=== PATIENT | male | born 1940 | race Caucasian/White ===

== ENCOUNTER 2017-08-01 17:18 | Inpatient (IN) | payer MEDICARE, OTHER ==
[~2017-08-01] VITALS: Ht 172.7 cm; Wt 59.0 kg
[2017-08-01 19:15] LABS: CLARITY,URINE Clear (Clear); COLOR,URINE Yellow (Yellow); GLUCOSE, URINE Negative (Neg); KETONES,URINE Negative (Neg); LEUKOCYTE ESTERASE ,URINE Negative (Neg); NITRITES, URINE Negative (Neg); OCCULT BLOOD,URINE Negative (Neg); PROTEIN,URINE Trace mg/dl (Neg); UROBILINOGEN,URINE 0.2 E.U/dL (0.2-1.0)
[2017-08-01 19:16] LABS: UA COLLECTION TYPE CLN CATCH MIDSTREAM
[2017-08-01 19:22] LABS: BACTERIA,URINE 1+ /HPF (Neg); MUCUS STRANDS NONE SEEN /LPF (Neg); RBC,URINE NONE SEEN /HPF (0-2); SQUAMOUS EPITHELIAL CELL,UR NONE SEEN /LPF (FEW); WBC,URINE NONE SEEN /HPF (0-4)
[2017-08-01 19:34] LABS: BASOPHILS # (AUTO) 0.1 X10'3 (0-0.2); BASOPHILS % (AUTO) 0.6 % (0-1); EOSINOPHILS # (AUTO) 0.2 X10'3 (0-0.9); EOSINOPHILS % (AUTO) 2.5 % (0-6); HEMATOCRIT 47.3 % (42.0-52.0); HEMOGLOBIN 15.7 g/dl (14.0-17.9); LYMPHOCYTES # (AUTO) 2.6 X10'3 (1.1-4.8); LYMPHOCYTES % (AUTO) 31.8 % (21-51); MEAN CORPUSCULAR HEMOGLOBIN 32.9 PG (27.0-31.0); MEAN CORPUSCULAR HGB CONC 33.1 % (33.0-36.5); MEAN CORPUSCULAR VOLUME 99.2 FL (78-98); MEAN PLATELET VOLUME 6.6 FL (7.4-10.4); MONOCYTES # (AUTO) 0.4 X10'3 (0-0.9); MONOCYTES % (AUTO) 5.3 % (2-12); NEUTROPHILS # (AUTO) 4.9 X10'3 (1.8-7.7); NEUTROPHILS % (AUTO) 59.8 % (42-75); PLATELET COUNT 263 X10'3 (140-440); RED BLOOD COUNT 4.77 X10'6 (4.70-6.10); RED CELL DISTRIBUTION WIDTH 15.4 % (11.5-14.5); WHITE BLOOD COUNT 8.2 X10'3 (4.5-11.0)
[2017-08-01 19:51] LABS: ALANINE AMINOTRANSFERASE 28 U/L (12-78); ALBUMIN 4.2 G/DL (3.4-5.0); ALKALINE PHOSPHATASE 129 IU/L (46-116); ANION GAP 9 (8-16); ASPARTATE AMINO TRANSFERASE 26 U/L (10-37); BILIRUBIN,TOTAL 1.4 MG/DL (0.1-1.0); BLOOD UREA NITROGEN 15 MG/DL (7-18); BUN/CREATININE RATIO 15.8 (5.4-32.0); CALCIUM 9.3 MG/DL (8.5-10.1); CHLORIDE 105 MMOL/L (99-107); CREATININE 0.95 MG/DL (0.60-1.10); GLUCOSE 73 MG/DL (70-104); LIPASE 137 U/L (73-393); MAGNESIUM 1.9 MG/DL (1.5-2.4); POTASSIUM 3.9 MMOL/L (3.5-5.1); SODIUM 143 MMOL/L (135-145); TOTAL CARBON DIOXIDE 29.4 MMOL/L (24-32); TOTAL PROTEIN 8.4 G/DL (6.4-8.2); eGFR 77 ML/MIN
[2017-08-01] MEDS ORDERED: diphenhydrAMINE 25mg capsule PO PRN (20:20)
[2017-08-01] MEDS ORDERED: acetaminophen 325mg tablet PO PRN ×2 (20:20)
[2017-08-01] MEDS ORDERED: metoclopramide 5 mg/ml inj IV PRN (20:20)
[2017-08-01] MEDS ORDERED: HYDROmorphone 1 mg/ml syringe IV PRN ×2 (20:20)
[2017-08-01] MEDS ORDERED: mag hydrox/Alum hydrox/simeth 30ml oral suspension PO PRN (20:20)
[2017-08-01] MEDS ORDERED: morphine sulfate 8 MG/ML SYRINGE IV PRN ×2 (20:20)
[2017-08-01] MEDS ORDERED: diphenhydrAMINE 50 mg/ml inj IV PRN (20:20)
[2017-08-01] MEDS ORDERED: magnesium hydroxide 30ml (MOM) UD suspension PO PRN (20:20)
[2017-08-01] MEDS ORDERED: HYDROcodone/acetaminophen 10/325mg tab PO PRN (20:20)
[2017-08-01] MEDS ORDERED: bisacodyl 10mg suppository rectal RC PRN (20:20)
[2017-08-01] MEDS ORDERED: acetaminophen 650mg rectal suppository RC PRN (20:20)
[2017-08-01] MEDS ORDERED: ondansetron/PF 4mg/2ml inj IV PRN (20:20)
[2017-08-01 20:34] LABS: D-DIMER 1.65 MG/L FEU (0-0.50); INR 0.9 INR; PARTIAL THROMBOPLASTIN TIME 25 SECONDS (22-32); PROTHROMBIN TIME 9.6 SECONDS (9.0-12.0)
[2017-08-01 20:51] LABS: PHOSPHORUS 3.8 MG/DL (2.3-4.5)
[2017-08-01] MEDS ORDERED: temazepam 15mg capsule PO PRN (21:00)
[2017-08-01 21:45] VITALS: BP 192/89
[2017-08-01] MEDS: HYDROcodone/acetaminophen 5mg/325mg tablet PO PRN (22:08)
[2017-08-01] MEDS: dextrose 5%-1/2 normal saline 1,000 ML IV SCH (23:24)
[2017-08-02 01:00] VITALS: BP 129/78
[2017-08-02] MEDS: hydrALAZINE 20mg/ml inj. IV SCH ×3 (02:00→16:20)
[2017-08-02] MEDS: HYDROcodone/acetaminophen 5mg/325mg tablet PO PRN ×3 (04:28→20:02)
[2017-08-02 05:49] VITALS: BP 129/78
[2017-08-02 06:00] VITALS: BP 133/78
[2017-08-02] MEDS: dextrose 5%-1/2 normal saline 1,000 ML IV SCH ×2 (06:18→19:58)
[2017-08-02 06:48] LABS: BASOPHILS % (AUTO) 0.7 % (0-1); EOSINOPHILS # (AUTO) 0.1 X10'3 (0-0.9); EOSINOPHILS % (AUTO) 2.1 % (0-6); HEMATOCRIT 39.6 % (42.0-52.0); HEMOGLOBIN 13.4 g/dl (14.0-17.9); LYMPHOCYTES # (AUTO) 2.2 X10'3 (1.1-4.8); LYMPHOCYTES % (AUTO) 33.6 % (21-51); MEAN CORPUSCULAR HEMOGLOBIN 33.6 PG (27.0-31.0); MEAN CORPUSCULAR HGB CONC 33.7 % (33.0-36.5); MEAN CORPUSCULAR VOLUME 99.6 FL (78-98); MEAN PLATELET VOLUME 7.1 FL (7.4-10.4); MONOCYTES # (AUTO) 0.5 X10'3 (0-0.9); MONOCYTES % (AUTO) 8.4 % (2-12); NEUTROPHILS # (AUTO) 3.6 X10'3 (1.8-7.7); NEUTROPHILS % (AUTO) 55.2 % (42-75); PLATELET COUNT 233 X10'3 (140-440); RED BLOOD COUNT 3.98 X10'6 (4.70-6.10); WHITE BLOOD COUNT 6.4 X10'3 (4.5-11.0)
[2017-08-02 07:33] LABS: ALANINE AMINOTRANSFERASE 22 U/L (12-78); ALBUMIN 3.3 G/DL (3.4-5.0); ALKALINE PHOSPHATASE 101 IU/L (46-116); ANION GAP 11 (8-16); ASPARTATE AMINO TRANSFERASE 22 U/L (10-37); BILIRUBIN,TOTAL 1.7 MG/DL (0.1-1.0); BLOOD UREA NITROGEN 21 MG/DL (7-18); BUN/CREATININE RATIO 20.4 (5.4-32.0); CALCIUM 8.5 MG/DL (8.5-10.1); CHLORIDE 103 MMOL/L (99-107); CREATININE 1.03 MG/DL (0.60-1.10); GLUCOSE 105 MG/DL (70-104); POTASSIUM 3.7 MMOL/L (3.5-5.1); SODIUM 140 MMOL/L (135-145); TOTAL CARBON DIOXIDE 26.3 MMOL/L (24-32); TOTAL PROTEIN 6.6 G/DL (6.4-8.2); eGFR 70 ML/MIN
[2017-08-02] MEDS: docusate sod 100mg capsule PO SCH ×2 (08:06→19:55)
[2017-08-02] MEDS: pantoprazole 40mg Tablet.DR PO SCH (08:06)
[2017-08-02] MEDS: heparin, porcine 5000 units/ml vial SQ SCH ×2 (08:07→19:55)
[2017-08-02] MEDS ORDERED: NO HOME MEDS (08:14)
[2017-08-02 10:00] VITALS: BP 152/81
[2017-08-02] MEDS ORDERED: hydrALAZINE 20mg/ml inj. IV PRN (18:30)
[2017-08-02 19:05] VITALS: BP 130/61
[2017-08-02 22:30] VITALS: BP 128/74
[2017-08-03] MEDS: HYDROcodone/acetaminophen 5mg/325mg tablet PO PRN ×2 (01:01→16:58)
[2017-08-03 05:00] VITALS: BP 149/83
[2017-08-03] MEDS: dextrose 5%-1/2 normal saline 1,000 ML IV SCH ×2 (05:51→12:18)
[2017-08-03 06:02] LABS: BASOPHILS % (AUTO) 0.6 % (0-1); EOSINOPHILS # (AUTO) 0.2 X10'3 (0-0.9); EOSINOPHILS % (AUTO) 2.7 % (0-6); HEMATOCRIT 37.3 % (42.0-52.0); HEMOGLOBIN 12.6 g/dl (14.0-17.9); LYMPHOCYTES # (AUTO) 2.5 X10'3 (1.1-4.8); LYMPHOCYTES % (AUTO) 38.6 % (21-51); MEAN CORPUSCULAR HEMOGLOBIN 33.7 PG (27.0-31.0); MEAN CORPUSCULAR HGB CONC 33.6 % (33.0-36.5); MEAN CORPUSCULAR VOLUME 100.3 FL (78-98); MEAN PLATELET VOLUME 7.1 FL (7.4-10.4); MONOCYTES # (AUTO) 0.6 X10'3 (0-0.9); MONOCYTES % (AUTO) 9.4 % (2-12); NEUTROPHILS # (AUTO) 3.1 X10'3 (1.8-7.7); NEUTROPHILS % (AUTO) 48.7 % (42-75); PLATELET COUNT 222 X10'3 (140-440); RED BLOOD COUNT 3.72 X10'6 (4.70-6.10); RED CELL DISTRIBUTION WIDTH 15.6 % (11.5-14.5); WHITE BLOOD COUNT 6.4 X10'3 (4.5-11.0)
[2017-08-03 06:49] LABS: ALANINE AMINOTRANSFERASE 21 U/L (12-78); ALBUMIN 2.9 G/DL (3.4-5.0); ALBUMIN/GLOBULIN RATIO 0.9 (1.1-1.5); ALKALINE PHOSPHATASE 86 IU/L (46-116); ANION GAP 5 (8-16); ASPARTATE AMINO TRANSFERASE 16 U/L (10-37); BLOOD UREA NITROGEN 17 MG/DL (7-18); BUN/CREATININE RATIO 15.3 (5.4-32.0); CALCIUM 8.7 MG/DL (8.5-10.1); CHLORIDE 106 MMOL/L (99-107); CREATININE 1.11 MG/DL (0.60-1.10); GLUCOSE 101 MG/DL (70-104); POTASSIUM 3.8 MMOL/L (3.5-5.1); SODIUM 140 MMOL/L (135-145); TOTAL CARBON DIOXIDE 28.6 MMOL/L (24-32); eGFR 64 ML/MIN
[2017-08-03] MEDS: lisinopril 5mg tablet PO SCH (08:57)
[2017-08-03] MEDS: pantoprazole 40mg Tablet.DR PO SCH (08:57)
[2017-08-03] MEDS: docusate sod 100mg capsule PO SCH ×2 (08:57→20:00)
[2017-08-03] MEDS: heparin, porcine 5000 units/ml vial SQ SCH ×2 (08:57→20:00)
[2017-08-03 10:00] VITALS: BP 163/91
[2017-08-03 18:05] VITALS: BP 154/79
[2017-08-03] MEDS ORDERED: LORazepam 2 mg/ml vial IV PRN (19:05)
[2017-08-03] MEDS: LORazepam 2 mg/ml vial IV PRN (20:37)
[2017-08-03 22:10] VITALS: BP 125/67
[2017-08-04] MEDS ORDERED: thiamine inj. 100 MG in normal saline 100ml IV soln 100 ML IV ONE ×2 (02:05→08:00)
[2017-08-04] MEDS ORDERED: haloperidol lactate 5mg/ml inj IM PRN (02:05)
[2017-08-04] MEDS ORDERED: haloperidol 5mg tablet PO PRN (02:05)
[2017-08-04] MEDS: LORazepam 2 mg/ml vial IV PRN (02:18)
[2017-08-04 05:00] VITALS: BP 126/81
[2017-08-04 07:35] LABS: BASOPHILS % (AUTO) 0.4 % (0-1); EOSINOPHILS # (AUTO) 0.3 X10'3 (0-0.9); EOSINOPHILS % (AUTO) 3.9 % (0-6); HEMATOCRIT 41.4 % (42.0-52.0); HEMOGLOBIN 13.9 g/dl (14.0-17.9); LYMPHOCYTES # (AUTO) 2.6 X10'3 (1.1-4.8); LYMPHOCYTES % (AUTO) 37.2 % (21-51); MEAN CORPUSCULAR HEMOGLOBIN 33.8 PG (27.0-31.0); MEAN CORPUSCULAR HGB CONC 33.5 % (33.0-36.5); MEAN CORPUSCULAR VOLUME 100.7 FL (78-98); MEAN PLATELET VOLUME 7.3 FL (7.4-10.4); MONOCYTES # (AUTO) 0.6 X10'3 (0-0.9); MONOCYTES % (AUTO) 9.3 % (2-12); NEUTROPHILS # (AUTO) 3.4 X10'3 (1.8-7.7); NEUTROPHILS % (AUTO) 49.2 % (42-75); PLATELET COUNT 240 X10'3 (140-440); RED BLOOD COUNT 4.11 X10'6 (4.70-6.10); RED CELL DISTRIBUTION WIDTH 15.3 % (11.5-14.5); WHITE BLOOD COUNT 6.9 X10'3 (4.5-11.0)
[2017-08-04] MEDS: heparin, porcine 5000 units/ml vial SQ SCH ×2 (08:00→20:16)
[2017-08-04] MEDS: docusate sod 100mg capsule PO SCH ×2 (08:00→20:15)
[2017-08-04] MEDS ORDERED: folic acid inj. 2 MG, thiamine inj. 100 MG, MVI, adult No.4 with vit. K 10 ML in dextro... IV SCH ×4 (08:00)
[2017-08-04 08:07] LABS: ALANINE AMINOTRANSFERASE 21 U/L (12-78); ALBUMIN 3.2 G/DL (3.4-5.0); ALBUMIN/GLOBULIN RATIO 0.9 (1.1-1.5); ALKALINE PHOSPHATASE 96 IU/L (46-116); ANION GAP 7 (8-16); ASPARTATE AMINO TRANSFERASE 18 U/L (10-37); BILIRUBIN,TOTAL 1.1 MG/DL (0.1-1.0); BLOOD UREA NITROGEN 8 MG/DL (7-18); BUN/CREATININE RATIO 7.6 (5.4-32.0); CALCIUM 9.1 MG/DL (8.5-10.1); CHLORIDE 105 MMOL/L (99-107); CREATININE 1.05 MG/DL (0.60-1.10); GLUCOSE 84 MG/DL (70-104); POTASSIUM 3.6 MMOL/L (3.5-5.1); SODIUM 142 MMOL/L (135-145); TOTAL CARBON DIOXIDE 30.2 MMOL/L (24-32); TOTAL PROTEIN 6.6 G/DL (6.4-8.2); eGFR 68 ML/MIN
[2017-08-04 10:00] VITALS: BP 144/82
[2017-08-04] MEDS: lisinopril 5mg tablet PO SCH (10:11)
[2017-08-04] MEDS: folic acid 1mg tablet PO SCH (10:12)
[2017-08-04] MEDS: multivitamins, therapeutics tablet PO SCH (10:12)
[2017-08-04] MEDS: thiamine 100mg tablet PO SCH (10:12)
[2017-08-04] MEDS: pantoprazole 40mg Tablet.DR PO SCH (10:12)
[2017-08-04 18:37] VITALS: BP 148/81
[2017-08-04] MEDS: LORazepam 1 MG tablet PO PRN (20:16)
[2017-08-04 21:49] VITALS: BP 131/89
[2017-08-05] MEDS: LORazepam 1 MG tablet PO PRN (01:48)
[2017-08-05] MEDS: LORazepam 2 mg/ml vial IV PRN (04:28)
[2017-08-05 06:00] VITALS: BP 136/71
[2017-08-05 06:39] LABS: BASOPHILS # (AUTO) 0.1 X10'3 (0-0.2); BASOPHILS % (AUTO) 0.9 % (0-1); EOSINOPHILS # (AUTO) 0.2 X10'3 (0-0.9); EOSINOPHILS % (AUTO) 3.2 % (0-6); HEMATOCRIT 38.6 % (42.0-52.0); HEMOGLOBIN 13.1 g/dl (14.0-17.9); LYMPHOCYTES # (AUTO) 2.4 X10'3 (1.1-4.8); LYMPHOCYTES % (AUTO) 31.9 % (21-51); MEAN CORPUSCULAR HEMOGLOBIN 33.9 PG (27.0-31.0); MEAN CORPUSCULAR HGB CONC 33.9 % (33.0-36.5); MEAN CORPUSCULAR VOLUME 99.9 FL (78-98); MEAN PLATELET VOLUME 7.3 FL (7.4-10.4); MONOCYTES # (AUTO) 0.7 X10'3 (0-0.9); MONOCYTES % (AUTO) 9.4 % (2-12); NEUTROPHILS # (AUTO) 4.1 X10'3 (1.8-7.7); NEUTROPHILS % (AUTO) 54.6 % (42-75); PLATELET COUNT 232 X10'3 (140-440); RED BLOOD COUNT 3.86 X10'6 (4.70-6.10); WHITE BLOOD COUNT 7.5 X10'3 (4.5-11.0)
[2017-08-05 06:55] LABS: ALANINE AMINOTRANSFERASE 33 U/L (12-78); ALBUMIN 3.2 G/DL (3.4-5.0); ALBUMIN/GLOBULIN RATIO 0.9 (1.1-1.5); ALKALINE PHOSPHATASE 97 IU/L (46-116); AMYLASE 62 U/L (25-115); ANION GAP 6 (8-16); ASPARTATE AMINO TRANSFERASE 42 U/L (10-37); BILIRUBIN,TOTAL 0.7 MG/DL (0.1-1.0); BLOOD UREA NITROGEN 16 MG/DL (7-18); BUN/CREATININE RATIO 15.7 (5.4-32.0); CALCIUM 9.1 MG/DL (8.5-10.1); CHLORIDE 104 MMOL/L (99-107); CREATININE 1.02 MG/DL (0.60-1.10); GLUCOSE 104 MG/DL (70-104); LIPASE 148 U/L (73-393); MAGNESIUM 1.8 MG/DL (1.5-2.4); PHOSPHORUS 3.9 MG/DL (2.3-4.5); SODIUM 140 MMOL/L (135-145); TOTAL CARBON DIOXIDE 29.7 MMOL/L (24-32); TOTAL PROTEIN 6.7 G/DL (6.4-8.2); eGFR 71 ML/MIN
[2017-08-05] MEDS: folic acid 1mg tablet PO SCH (09:05)
[2017-08-05] MEDS: thiamine 100mg tablet PO SCH (09:05)
[2017-08-05] MEDS: multivitamins, therapeutics tablet PO SCH (09:05)
[2017-08-05] MEDS: lisinopril 5mg tablet PO SCH (09:05)
[2017-08-05] MEDS: docusate sod 100mg capsule PO SCH ×2 (09:06→19:55)
[2017-08-05] MEDS: pantoprazole 40mg Tablet.DR PO SCH (09:06)
[2017-08-05] MEDS: heparin, porcine 5000 units/ml vial SQ SCH ×2 (09:07→19:55)
[2017-08-05 10:00] VITALS: BP 139/74
[2017-08-05 14:15] VITALS: BP 123/73
[2017-08-05 18:00] VITALS: BP 128/65
[2017-08-05 22:00] VITALS: BP 118/44
[2017-08-06] MEDS ORDERED: LORazepam 1 MG tablet PO PRN (02:05)
[2017-08-06] MEDS ORDERED: LORazepam 2 mg/ml vial IV PRN (02:05)
[2017-08-06 06:00] VITALS: BP 95/75
[2017-08-06 06:37] LABS: BASOPHILS % (AUTO) 0.6 % (0-1); EOSINOPHILS # (AUTO) 0.2 X10'3 (0-0.9); EOSINOPHILS % (AUTO) 3.1 % (0-6); HEMATOCRIT 39.5 % (42.0-52.0); HEMOGLOBIN 13.3 g/dl (14.0-17.9); LYMPHOCYTES # (AUTO) 2.8 X10'3 (1.1-4.8); LYMPHOCYTES % (AUTO) 38.2 % (21-51); MEAN CORPUSCULAR HEMOGLOBIN 33.7 PG (27.0-31.0); MEAN CORPUSCULAR HGB CONC 33.6 % (33.0-36.5); MEAN CORPUSCULAR VOLUME 100.1 FL (78-98); MEAN PLATELET VOLUME 7.4 FL (7.4-10.4); MONOCYTES # (AUTO) 0.7 X10'3 (0-0.9); NEUTROPHILS # (AUTO) 3.6 X10'3 (1.8-7.7); NEUTROPHILS % (AUTO) 49.1 % (42-75); PLATELET COUNT 228 X10'3 (140-440); RED BLOOD COUNT 3.95 X10'6 (4.70-6.10); RED CELL DISTRIBUTION WIDTH 15.5 % (11.5-14.5); WHITE BLOOD COUNT 7.4 X10'3 (4.5-11.0)
[2017-08-06 06:47] LABS: PROTHROMBIN TIME 9.9 SECONDS (9.0-12.0)
[2017-08-06 06:59] LABS: ALANINE AMINOTRANSFERASE 72 U/L (12-78); ALBUMIN 3.1 G/DL (3.4-5.0); ALBUMIN/GLOBULIN RATIO 0.9 (1.1-1.5); ALKALINE PHOSPHATASE 93 IU/L (46-116); AMYLASE 63 U/L (25-115); ANION GAP 7 (8-16); ASPARTATE AMINO TRANSFERASE 88 U/L (10-37); BILIRUBIN,TOTAL 0.6 MG/DL (0.1-1.0); BLOOD UREA NITROGEN 18 MG/DL (7-18); BUN/CREATININE RATIO 17.8 (5.4-32.0); CALCIUM 9.2 MG/DL (8.5-10.1); CHLORIDE 105 MMOL/L (99-107); CREATININE 1.01 MG/DL (0.60-1.10); GLUCOSE 111 MG/DL (70-104); LIPASE 143 U/L (73-393); MAGNESIUM 1.8 MG/DL (1.5-2.4); PHOSPHORUS 3.6 MG/DL (2.3-4.5); POTASSIUM 3.8 MMOL/L (3.5-5.1); SODIUM 140 MMOL/L (135-145); TOTAL CARBON DIOXIDE 27.8 MMOL/L (24-32); TOTAL PROTEIN 6.6 G/DL (6.4-8.2); eGFR 72 ML/MIN
[2017-08-06] MEDS: thiamine 100mg tablet PO SCH (08:24)
[2017-08-06] MEDS: lisinopril 5mg tablet PO SCH (08:24)
[2017-08-06] MEDS: multivitamins, therapeutics tablet PO SCH (08:24)
[2017-08-06] MEDS: folic acid 1mg tablet PO SCH (08:24)
[2017-08-06] MEDS: pantoprazole 40mg Tablet.DR PO SCH (08:24)
[2017-08-06] MEDS: docusate sod 100mg capsule PO SCH ×2 (08:24→20:38)
[2017-08-06] MEDS: heparin, porcine 5000 units/ml vial SQ SCH ×2 (08:26→20:38)
[2017-08-06 10:00] VITALS: BP 119/69
[2017-08-06 18:00] VITALS: BP 148/94
[2017-08-06] MEDS: LORazepam 1 MG tablet PO PRN ×2 (22:34→23:42)
[2017-08-06 23:00] VITALS: BP 135/65
[2017-08-07 01:59] VITALS: BP 139/79
[2017-08-07] MEDS: LORazepam 2 mg/ml vial IV PRN (02:56)
[2017-08-07 06:00] VITALS: BP 150/81
[2017-08-07 06:51] LABS: MAGNESIUM 1.9 MG/DL (1.5-2.4); PHOSPHORUS 3.1 MG/DL (2.3-4.5)
[2017-08-07] MEDS: heparin, porcine 5000 units/ml vial SQ SCH ×2 (08:00→08:05)
[2017-08-07] MEDS: docusate sod 100mg capsule PO SCH (08:04)
[2017-08-07] MEDS: thiamine 100mg tablet PO SCH (08:05)
[2017-08-07] MEDS: lisinopril 5mg tablet PO SCH (08:05)
[2017-08-07] MEDS: pantoprazole 40mg Tablet.DR PO SCH (08:05)
[2017-08-07] MEDS: folic acid 1mg tablet PO SCH (08:05)
[2017-08-07] MEDS: multivitamins, therapeutics tablet PO SCH (08:05)
[2017-08-07] MEDS ORDERED: HYDR-569 PO (12:27)
[2017-08-07] MEDS ORDERED: LISI-604 PO (12:27)
[2017-08-08] MEDS ORDERED: LORazepam 1 MG tablet PO PRN (02:05)
[2017-08-08] MEDS ORDERED: LORazepam 2 mg/ml vial IV PRN (02:05)
== END 2017-08-07 15:17 | disposition home or self-care (01) | DRG 543 ==
LOC: ER 17:19 → ED HOLD 20:18 → ORTHO 4S 21:30
PROVIDERS: ADMIT Family Medicine; ATTEND Family Medicine
DX: M48.56XA Collapsed vertebra, not elsewhere classified, lumbar region, initial encounter for fracture (principal); J90 Pleural effusion, not elsewhere classified; K86.2 Cyst of pancreas; K76.0 Fatty (change of) liver, not elsewhere classified; Z68.1 Body mass index [BMI] 19.9 or less, adult; K80.20 Calculus of gallbladder without cholecystitis without obstruction; F10.10 Alcohol abuse, uncomplicated; G89.29 Other chronic pain; I10 Essential (primary) hypertension; X58.XXXA Exposure to other specified factors, initial encounter; I25.10 Atherosclerotic heart disease of native coronary artery without angina pectoris; M21.379 Foot drop, unspecified foot; Z90.49 Acquired absence of other specified parts of digestive tract; Z91.81 History of falling; Z95.1 Presence of aortocoronary bypass graft; Z79.899 Other long term (current) drug therapy; Y93.89 Activity, other specified; Y92.89 Other specified places as the place of occurrence of the external cause; Y99.8 Other external cause status
CPT/HCPCS: 36415; 71250; 72131; 72148; 74176; 76700; 80053; 81001; 82150; 82948; 83036; 83690; 83735; 83880; 84100; 84443; 84484; 85025; 85379; 85610; 85730; 87070; 93005; 97110; 97116; 97162; 97530; 99285; A6258; J0360; J1630; J1644; J2060; J2270; J3411; J3490; J7060